=== PATIENT | male | born 1990 | race Caucasian/White ===

== ENCOUNTER 2021-04-02 19:58 | Emergency (ER) | payer SELFPAY ==
[~2021-04-02] VITALS: Ht 182.9 cm; Wt 118.2 kg
[2021-04-02 19:58] VITALS: BP 158/74
== END 2021-04-03 00:29 | disposition left against medical advice (07) ==
LOC: M ED 19:58
DX: Z53.21 Procedure and treatment not carried out due to patient leaving prior to being seen by health care provider (principal)